=== PATIENT | male | born 1970 | race Caucasian/White ===

== ENCOUNTER → 2016-06-19 | Outpatient (CLI) | payer OTHER ==
[~2016-06-19] VITALS: Ht 172.7 cm; Wt 106.6 kg
[~2016-06-19] MED LIST: CORGARD40 M1 PO; IBUPROFEN 200200 M1 PO; SIMVASTATIN40 MG PO; TRAMADOL 50 MG50 MG PO; ZESTORETIC 20-1 EAC3 PO
--- NOTE | ~2016-06-19 | HPC ---
[facility] [address] [place] [address] PAIN MANAGEMENT CONSULTATION Name: AKHIL ROSENBERG Room #: REG [facility] Sabra.#: [id number] Admission: 06/19/16 Attend Phys: Jada Collier MD Discharge: Date of : 66 Report #: [id number] THIS REPORT FOR: //name// CC: Jada Vail MD DATE OF SERVICE: 06/19/2016 CHIEF COMPLAINT: The back pain was greater than 50% better, but has now come back. FOLLOWUP HISTORY: The patient is a 46-year-old gentleman who has been seen in the pain clinic because of lumbar radiculopathy. He underwent an epidural steroid injection at his last visit. He noticed significant improvement in his pain. It was greater than 50% better. He returned today indicating that he has noted some worsening of his pain and recurrence of pain and discomfort. He would like to undergo another epidural steroid injection. He had no complication from the last injection. He continues to work. He works as a dialysis person. All of that bending and moving around has exacerbated his back pain. He notes some stabbing, constant pain radiating down to the buttocks area. This pain is very similar to that which he has experienced when we initially saw him on 04/19/2016. PHYSICAL EXAMINATION: Blood pressure 134/95, pulse 60, respiratory rate is 16, room air saturation is 97%. The patient walks with an antalgic gait. He has pain and discomfort in the right low back area radiating down into his buttocks. IMPRESSION: Lumbar radiculopathy, which improved greater than 50% after the first epidural steroid injection, but has increased over the last few days. RECOMMENDATIONS: We discussed treatment options with the patient. Risks and benefits of an additional epidural steroid injection were discussed. Possible complications were reviewed. The patient elects to proceed. PROCEDURE NOTE: The patient was placed in the prone position. Fluoroscopy was used to identify the L4-L5 interspace. This area had been sterilely prepped with Betadine and infiltrated with 0.25% bupivacaine. Total of 80 mg Depo-Medrol, 40 mg triamcinolone and 2 mL 0.25% bupivacaine was injected. A total of 12 seconds was used. The patient tolerated the procedure without complication. His pain decreased to 1 at the time of discharge. He states he is going to [place] for vacation. Hopefully, he has a good time there. [address] [address] PAIN MANAGEMENT CONSULTATION Name: AKHIL ROSENBERG Room #: REG [facility]#: [id number] Admission: 06/19/16 Attend Phys: Jada Collier MD Discharge: Date of : 66 Report #: [id number] We would like to thank you for letting us participate in his care. We hope he continues to improve. <ELECTRONICALLY SIGNED> By: Jada Collier MD 06/22/16 0819 1315 1721 Jada Collier MD /gloria
[2016-06-19 11:13] VITALS: BP 134/95
== END ==
LOC: PAIN 05:58
DX: M54.16 Radiculopathy, lumbar region (principal); I10 Essential (primary) hypertension

== ENCOUNTER → 2016-11-14 | Outpatient (CLI) | payer OTHER ==
[~2016-11-14] VITALS: Ht 172.7 cm; Wt 102.6 kg
[~2016-11-14] MED LIST changes: +MEDROLDOSEPACK PO; +MOBIC15 MG PO; +NEURONTIN 300300 M1 PO
--- NOTE | ~2016-11-14 | HPC ---
[facility] [address] [place] [address] PAIN MANAGEMENT CONSULTATION Name: AKHIL ROSENBERG Room #: REG [facility] Sabra.#: [id number] Admission: 11/14/16 Attend Phys: Jada Collier MD Discharge: Date of : 66 Report #: [id number] THIS REPORT FOR: //name// CC: Jada Vail MD DATE OF SERVICE: 11/14/2016 DATE OF SERVICE: 11/14/2016. PRIMARY CARE PHYSICIAN: Tala Vail MD FOLLOWUP COMPLAINT: Pain was greater than 50% better over the last 4 months. I have noticed that over the last week or so that the pain has begun to return. It involves the low back and down to the legs. FOLLOWUP HISTORY: The patient is a 46-year-old gentleman who has been followed in the pain clinic because of lumbar radiculopathy. He has undergone epidural steroid injections. He has noted significant improvement of greater than 50% on each occasion. 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 It is [place] acres. He has noted that pain can become problematic with sharp, shooting pain radiating down into his right leg. He finds that tramadol can be helpful. He would like to undergo an epidural steroid injection today. He denies any new changes to his bowel or bladder function since the past injections. As you recall, he works as a nurse. When he is working and has to stand on his feet for a long period of time, he notes that this exacerbates his discomfort considerably. PHYSICAL EXAMINATION: VITAL SIGNS: Blood pressure 129/81, pulse 63, respiratory rate 18, room air saturation is 100, height 5 feet 8 inches, weight 102 kg. NEUROLOGIC: The patient has pain and discomfort in the lower portion of his back with pain radiating down into his right foot and into the anterior L5 distribution of his calf, particularly on the right side. He also has experienced some pins and needle sensation in his foot. He rates it as an 8/10. IMPRESSION: Lumbar radiculopathy, which has improved by greater than 50% over 4 months after the last epidural steroid injection. The patient has been able to do more activities of daily living as a result of the improvement. He is having less discomfort after the last injection. He has noticed some recurrence in the last week or so. He would like to proceed with another epidural steroid injection. RECOMMENDATIONS: We discussed treatment options with the patient. Risks and benefits of an epidural steroid injection were again reviewed. Possible [address] [address] PAIN MANAGEMENT CONSULTATION Name: AKHIL ROSENBERG Room #: REG [facility]#: [id number] Admission: 11/14/16 Attend Phys: Jada Collier MD Discharge: Date of : 66 Report #: [id number] complications were discussed. At this juncture, the insurance company has been called. They deny him an additional epidural steroid injection until December. At that time, he will return for another injection. To help with his pain at this juncture, we will renew his tramadol 50 mg q.i.d. as needed. Gabapentin 300 mg 1 p.o. t.i.d. and titrate it to a level of 300 t.i.d. has been provided. The patient will continue with meloxicam which he finds beneficial. A Medrol Dosepak will also be given to help with his discomfort until he is able to undergo an injection. We would like to thank you for letting us participate in his care. We hope he continues to improve. By: [id number] Jada Collier MD /gloria
[2016-11-14 08:14] VITALS: BP 129/81
== END | disposition home or self-care (01) ==
LOC: PAIN 06:06
DX: M54.16 Radiculopathy, lumbar region (principal); G89.29 Other chronic pain

== ENCOUNTER → 2016-12-26 | Outpatient (CLI) | payer OTHER ==
[~2016-12-26] VITALS: Ht 172.7 cm; Wt 102.7 kg
== END | disposition home or self-care (01) ==
LOC: PAIN 06:37
DX: M54.16 Radiculopathy, lumbar region (principal); G89.29 Other chronic pain; Z98.890 Other specified postprocedural states

== ENCOUNTER → 2017-03-01 | Outpatient (CLI) | payer OTHER ==
[~2017-03-01] VITALS: Ht 172.7 cm; Wt 106.6 kg
--- NOTE | ~2017-03-01 | HPC ---
[facility] [address] [place] [address] PAIN MANAGEMENT CONSULTATION Name: AKHIL ROSENBERG Room #: REG [facility] Sabra.#: [id number] Admission: 03/01/17 Attend Phys: Jada Collier MD Discharge: Date of : 66 Report #: [id number] THIS REPORT FOR: //name// CC: Jada Vail MD DATE OF SERVICE: 03/01/2017 FOLLOWUP COMPLAINT: Pain in the low back and pain with numbness down into both feet. FOLLOWUP HISTORY: The patient is a 46-year-old gentleman who has been seen in the pain clinic in the past because of lumbar radiculopathy. He has undergone epidural steroid injections and gleaned benefits from these. He returns today indicating that his pain has continued to be problematic. It involves his right leg with radiation down into the L5-L4 distribution. There is numbness on the dorsum of his foot. There is numbness in the calf area on the front of his leg. He is considering going to [place]. He has some family members in that area. He is going to drive. He would like to undergo an epidural steroid injection prior to this drive given that it will most likely be taxing on his back. He rates it as a 09/24. PHYSICAL EXAMINATION: Blood pressure is 149/81, pulse 61, respiratory rate 16, room air saturation 98%. The patient has pain and discomfort radiating down in the left L5-S1 nerve root distribution as well as some pain in the left buttocks area down the lateral portion of his thigh. He notes weakness as a result of this. IMPRESSION: Lumbar radiculopathy with pain and discomfort in the L5-S1 nerve root distribution, which improved by greater than 80% after an epidural steroid injection in the past. RECOMMENDATIONS: We discussed treatment options with the patient. Risks and benefits of the procedure were reviewed. Possible complications were discussed. The patient would like to proceed. PROCEDURE NOTE: The patient was placed in the prone position. Fluoroscopy was used to identify the L4-L5 nerve region. A solution of Betadine was used to sterilize the entry site. 0.25% bupivacaine was injected. A 17-gauge Tuohy with loss of resistance technique was used to gain access to the epidural space. There was no CSF, heme or paresthesia. A total of 80 mg of Depo-Medrol, 40 mg of triamcinolone and 2 mL of 0.25% bupivacaine was injected. The patient felt that the medication was indeed in the area where his discomfort was emanating from. Total of 9 seconds fluoroscopy time was used. The patient will follow up [address] [address] PAIN MANAGEMENT CONSULTATION Name: ROSENBERGAKHIL Room #: REG [facility]#: [id number] Admission: 03/01/17 Attend Phys: Jada Collier MD Discharge: Date of : 66 Report #: [id number] in the future as needed. We would like to thank you for letting us participate in his care. We hope he continues to improve. By: [id number] Jada Collier MD /MONICA
[2017-03-01 08:28] VITALS: BP 149/81
== END | disposition home or self-care (01) ==
LOC: PAIN 01-02 07:21
DX: M54.16 Radiculopathy, lumbar region (principal); Z98.890 Other specified postprocedural states; Z79.899 Other long term (current) drug therapy